=== PATIENT | female | born 1970 | race Hispanic/Latino ===

== ENCOUNTER → 2017-11-27 | Outpatient (CLI) | payer BC ==
[~2017-11-27] MED LIST: CARAFATE1 GM PO; CEFEPIME-D1 GM/50 ML IV; CLINDAMYCIN HC300 MG PO; CYMBALTA30 MG; FENOFIBRATE PO; FENOFIBRATE134 MG PO; HYDROCODON-ACE1 EACH PO; METOPROLOL SUCC25 MG PO; NKM; PANTOPRAZOLE PO; PANTOPRAZOLE SO40 MG PO; TAMOXIFEN CITRA20 MG PO; TAMOXIFEN PO; VANCOMYCIN IV; [UNRECOGNIZED DRUG - OTHER]; [UNRECOGNIZED DRUG - OTHER] PO
--- NOTE | 2017-11-27 15:57 | Diagnostic Imaging Report ---
#[id number] - MGSCRRT #UNILATERAL RIGHT DIGITAL SCREENING MAMMOGRAM WITH CAD: 11/27/2017 CLINICAL: Routine screening. Comparison is made to exams dated: 10/04/2016 mammogram and 05/02/2014 mammogram - [facility]. Current study contains 4 films. The tissue of the right breast is heterogeneously dense. This may lower the sensitivity of mammography. Current study was also evaluated with a Computer Aided Detection (CAD) system. There is a benign calcification in the right breast. Right breast implant is intact. No significant masses, calcifications, or other findings are seen in the breast. There has been no significant interval change. IMPRESSION: BENIGN There is no mammographic evidence of malignancy. A 1 year screening mammogram is recommended. The patient will be notified by letter of the results. Toño saldaña/erwin:11/27/2017 14:45:55 [employer] Technician: Carlotta WALKER(Ronni)(M), [facility] letter sent: Compared to Prior B9 Mammogram BI-RADS: 2 Benign
== END ==
LOC: MAMMO 11:08
PROVIDERS: ATTEND Obstetrics & Gynecology
DX: Z12.31 Encounter for screening mammogram for malignant neoplasm of breast (principal)

== ENCOUNTER → 2020-11-02 | Day surgery (SDC) | payer BC ==
[~2020-11-02] MED LIST changes: +ACETAMINOPHEN-1 EAC4 PO; +SODIUM CHLORIDE 0.9% 50ML 50 ML ONE
[2020-11-02 09:50] VITALS: BP 147/83
== END | disposition home or self-care (01) ==
LOC: OR 05:31
PROVIDERS: ATTEND Plastic Surgery
DX: N65.1 Disproportion of reconstructed breast (principal); Z85.3 Personal history of malignant neoplasm of breast; I10 Essential (primary) hypertension; Z01.810 Encounter for preprocedural cardiovascular examination; Z01.812 Encounter for preprocedural laboratory examination; Z20.822 Contact with and (suspected) exposure to COVID-19
CPT/HCPCS: 19325; 19328; 93005; J0690; U0002

== ENCOUNTER 2022-04-16 10:15 | Emergency (ER) | payer BC ==
[~2022-04-16] VITALS: Ht 162.6 cm; Wt 76.8 kg
[~2022-04-16 10:15] MED LIST changes: +CIPRO500 MG PO; +LEVSIN-SL0.125 MG SL; +ONDANSETRON ODT4 MG PO; -SODIUM CHLORIDE 0.9% 50ML 50 ML ONE
[2022-04-16] MEDS ORDERED: CLONIDINE HCL0.1 MG PO (10:51)
[2022-04-16] MEDS ORDERED: SUMATRIPTAN SUC25 MG PO (10:51)
[2022-04-16] MEDS ORDERED: ATORVASTATIN CA20 MG PO (10:51)
[2022-04-16] MEDS ORDERED: VENLAFAXINE HCL75 M2 PO (10:51)
[2022-04-16] MEDS ORDERED: COREG6.25 MG PO (10:51)
[2022-04-16] MEDS ORDERED: KETOROLAC TROMETHAMINE 30 MG/ML VIAL IV STA (12:15)
[2022-04-16] MEDS ORDERED: CYCLOBENZAPRINE HCL 10 MG TAB PO ONE (12:15)
[2022-04-16] MEDS ORDERED: KETOROLAC TROMETHAMINE 30 MG/ML VIAL ONE (12:39)
[2022-04-16] MEDS ORDERED: CYCLOBENZAPRINE HCL 10 MG TAB ONE (12:39)
[2022-04-16] MEDS ORDERED: PREDNISONE50 MG PO (14:02)
[2022-04-16] MEDS ORDERED: METHOCARBAMOL750 MG PO (14:04)
== END 2022-04-16 14:19 | disposition home or self-care (01) ==
LOC: FSED 10:29
DX: R07.89 Other chest pain (principal); M54.12 Radiculopathy, cervical region; M62.838 Other muscle spasm; R51.9 Headache, unspecified; I10 Essential (primary) hypertension; E78.5 Hyperlipidemia, unspecified; F41.9 Anxiety disorder, unspecified; R94.31 Abnormal electrocardiogram [ECG] [EKG]; Z85.3 Personal history of malignant neoplasm of breast
CPT/HCPCS: 70450; 71046; 72125; 80053; 81003; 82553; 84484; 85025; 93005; 96374; 99284; J1885

== ENCOUNTER → 2022-04-30 | Outpatient (CLI) | payer BC ==
[~2022-04-30] MED LIST changes: +ATORVASTATIN CA20 MG PO; +CLONIDINE HCL0.1 MG PO; +COREG6.25 MG PO; +METHOCARBAMOL750 MG PO; +PREDNISONE50 MG PO; +SUMATRIPTAN SUC25 MG PO; +VENLAFAXINE HCL75 M2 PO
== END ==
LOC: MAMMO 09:29
PROVIDERS: ATTEND Internal Medicine
DX: Z12.31 Encounter for screening mammogram for malignant neoplasm of breast (principal)

== ENCOUNTER 2023-01-01 15:58 | Emergency (ER) | payer BC ==
[~2023-01-01] VITALS: Ht 162.6 cm; Wt 73.9 kg
[2023-01-01] MEDS ORDERED: KETOROLAC TROMETHAMINE 30 MG/ML VIAL ONE (16:35)
[2023-01-01] MEDS ORDERED: SODIUM CHLORIDE 0.9% 1000ML 1,000 ML ONE (16:35)
[2023-01-01] MEDS ORDERED: HYDRALAZINE HCL 20 MG/ML VIAL ONE (16:35)
[2023-01-01] MEDS ORDERED: ONDANSETRON HCL INJ 2MG/ML 2ML 2 MG/ML VIAL ONE (16:35)
[2023-01-01] MEDS ORDERED: FAMOTIDINE 20 MG/2 ML VIAL IV ONE (16:36)
[2023-01-01] MEDS ORDERED: ACETAMINOPHEN 325 MG TAB ONE (17:00)
[2023-01-01] MEDS ORDERED: ONDANSETRON HCL INJ 2MG/ML 2ML 2 MG/ML VIAL IV STA (17:09)
[2023-01-01] MEDS ORDERED: FAMOTIDINE 20 MG/2 ML VIAL IV STA (17:09)
[2023-01-01] MEDS ORDERED: SODIUM CHLORIDE 0.9% 1000ML 1,000 ML IV ONE (17:15)
[2023-01-01] MEDS ORDERED: HYDRALAZINE HCL 20 MG/ML VIAL IV ONE (17:15)
[2023-01-01] MEDS ORDERED: ACETAMINOPHEN 325 MG TAB PO ONE (17:15)
[2023-01-01 18:14] VITALS: BP 156/89; PULSE 75; RESP 16; O2SAT 100
[2023-01-01] MEDS ORDERED: CARVEDILOL12.5 MG PO (18:20)
[2023-01-01] MEDS ORDERED: ULTRAM 50MG50 MG PO (18:21)
== END 2023-01-01 18:36 | disposition home or self-care (01) ==
LOC: FSED 16:03
DX: I10 Essential (primary) hypertension (principal); R07.9 Chest pain, unspecified; R51.9 Headache, unspecified; K08.89 Other specified disorders of teeth and supporting structures; E78.5 Hyperlipidemia, unspecified; Z85.3 Personal history of malignant neoplasm of breast
CPT/HCPCS: 70450; 71046; 80053; 81003; 84484; 85025; 96374; 96375; 96376; 99284; J0360; J1885; J2405; J7030; 93005

== ENCOUNTER → 2024-07-05 | Outpatient (REF) | payer BC ==
[~2024-07-05] MED LIST changes: +CARVEDILOL12.5 MG PO; +ULTRAM 50MG50 MG PO
== END ==
LOC: DX 09:34
PROVIDERS: ATTEND Family Medicine Adult Medicine
DX: Z12.31 Encounter for screening mammogram for malignant neoplasm of breast (principal); M85.88 Other specified disorders of bone density and structure, other site
CPT/HCPCS: 77080